=== PATIENT | female | born 1970 | race Two or more races ===

== ENCOUNTER 2024-04-20 13:57 | Emergency (ER) | payer OTHER ==
[~2024-04-20] VITALS: Ht 162.6 cm; Wt 62.1 kg
[2024-04-20] MEDS ORDERED: AZITHROMYCIN 500 MG in 0.9 % SODIUM CHLORIDE 250 ML IV STA (15:31)
[2024-04-20] MEDS ORDERED: DEXAMETHASONE SODIUM PHOSPHATE 4 MG/ML VIAL IV STA (15:31)
[2024-04-20] MEDS ORDERED: DEXAMETHASONE SODIUM PHOSPHATE 4 MG/ML VIAL ONE (15:55)
[2024-04-20] MEDS ORDERED: AZITHROMYCIN 500 MG VIAL IV ONE (15:56)
== END 2024-04-20 18:49 | disposition home or self-care (01) ==
LOC: ER 13:58
DX: S60.872A Other superficial bite of left wrist, initial encounter (principal); L03.114 Cellulitis of left upper limb; W55.01XA Bitten by cat, initial encounter; Y93.89 Activity, other specified; Y92.018 Other place in single-family (private) house as the place of occurrence of the external cause